=== PATIENT | male | born 1975 | race Two or more races ===

== ENCOUNTER 2020-09-12 12:01 | Inpatient (IN) | payer OTHER ==
[~2020-09-12] VITALS: Ht 190.5 cm; Wt 120.6 kg
[2020-09-12] MEDS ORDERED: KETOROLAC TROMETH 30 MG/ML 1ML VIAL IV ONE (12:15)
[2020-09-12] MEDS ORDERED: SODIUM CHLORIDE 0.9% 500 ML IV ONE (12:15)
[2020-09-12] MEDS ORDERED: CLINDAMYCIN 600MG IV 50 ML IV ONE (13:00)
[2020-09-12 13:20] LABS: Basophils # (auto) 0 10 ^3/uL (0-0.2); Basophils % (auto) 0.5 % (0.0-2.0); Eosinophils # (auto) 0.1 10 ^3/uL (0-0.8); Eosinophils % (auto) 1.1 % (0.0-7.0); Hematocrit 40.3 % (41.0-53.0); Hemoglobin 13.3 g/dL (13.5-17.5); Lymphocytes % (auto) 23.8 % (10.0-50.0); Mean Corpuscular Hemoglobin 29.6 pg (28.0-32.0); Mean Corpuscular Hgb Conc. 33.1 g/dL (32.0-36.0); Mean Corpuscular Volume 89.4 fL (80.0-100.0); Monocytes # (auto) 0.4 10 ^3/uL (0-1.3); Monocytes % (auto) 5.3 % (0.0-12.0); Neutrophils # (auto) 5.7 10 ^3/uL (1.6-8.6); Neutrophils % (auto) 69.3 % (37.0-80.0); Red Cell Distribution Width 14.3 % (11.8-14.3); White Blood Cell 8.2 10^3/uL (4.4-10.8)
[2020-09-12 13:35] LABS: Calcium 9.2 mg/dL (8.5-10.1); Potassium 4.2 mmol/L (3.5-5.1)
[2020-09-12 13:41] LABS: Albumin 4.1 g/dL (3.4-5.0); BUN/Creatinine Ratio 16.5; Bilirubin, Total 0.6 mg/dL (0.2-1.0); Total Protein 8.2 g/dL (6.4-8.2)
[2020-09-12] MEDS ORDERED: DEXTROSE (50%) 50ML SYRG IV PRN (14:15)
[2020-09-12] MEDS ORDERED: NITROGLYCERIN 0.4 MG SL TAB SL PRN (14:15)
[2020-09-12] MEDS ORDERED: MORPHINE SULFATE INJECTION 2 MG/ML SYRG IV PRN (14:15)
[2020-09-12] MEDS ORDERED: ONDANSETRON HCL 4 MG/2 ML VIAL IV PRN (14:15)
[2020-09-12] MEDS ORDERED: VANCOMYCIN PER PHARMACY 0 MG IV SCH (15:30)
[2020-09-12] MEDS: VANCOMYCIN 1GM/250ML 250 ML IV SCH ×2 (16:17→23:52)
[2020-09-12] MEDS: InsuLIN REG 1unit/0.01ml Soln (100units/ml) SC SCH ×2 (17:00→21:13)
[2020-09-12 17:30] VITALS: BP 145/89
[2020-09-12 17:40] LABS: Urine Bacteria FEW /hpf (None Seen); Urine Blood Negative /uL (Negative); Urine Hyaline Cast FEW /lpf (0 - 2); Urine Mucus FEW (None Seen); Urine Specific Gravity 1.026 (1.001-1.035); Urine WBC 3 /hpf (0 - 3)
[2020-09-12] MEDS: ACCU-CHEK COMFORT CURVE STRIP VI SCH ×2 (18:04→21:10)
[2020-09-12] MEDS: HYDROcodone-ACET 10/325MG TAB PO PRN ×2 (18:45→23:59)
[2020-09-12 22:00] VITALS: BP 152/96
[2020-09-13] VITALS (8 sets, daily range): BP systolic 130–161; BP diastolic 82–98
[2020-09-13] MEDS: ACCU-CHEK COMFORT CURVE STRIP VI SCH ×4 (06:00→21:08)
[2020-09-13] MEDS: InsuLIN REG 1unit/0.01ml Soln (100units/ml) SC SCH ×4 (06:01→21:09)
[2020-09-13 06:48] LABS: Basophils # (auto) 0 10 ^3/uL (0-0.2); Basophils % (auto) 0.6 % (0.0-2.0); Eosinophils # (auto) 0.2 10 ^3/uL (0-0.8); Eosinophils % (auto) 2.6 % (0.0-7.0); Hematocrit 36.1 % (41.0-53.0); Hemoglobin 12.2 g/dL (13.5-17.5); Lymphocytes # (auto) 2.6 10 ^3/uL (0.4-5.4); Lymphocytes % (auto) 38.5 % (10.0-50.0); Mean Corpuscular Hemoglobin 30.2 pg (28.0-32.0); Mean Corpuscular Hgb Conc. 33.8 g/dL (32.0-36.0); Mean Corpuscular Volume 89.1 fL (80.0-100.0); Monocytes # (auto) 0.5 10 ^3/uL (0-1.3); Monocytes % (auto) 7.6 % (0.0-12.0); Neutrophils # (auto) 3.4 10 ^3/uL (1.6-8.6); Neutrophils % (auto) 50.7 % (37.0-80.0); Nucleated Red Blood Cells % 0.1 %; Red Blood Cells 4.05 10^6/uL (4.5-5.90); Red Cell Distribution Width 13.8 % (11.8-14.3); White Blood Cell 6.7 10^3/uL (4.4-10.8)
[2020-09-13 07:06] LABS: Calcium 8.5 mg/dL (8.5-10.1); Potassium 4.1 mmol/L (3.5-5.1)
[2020-09-13 07:08] LABS: BUN/Creatinine Ratio 22.9
[2020-09-13] MEDS: HYDROcodone-ACET 10/325MG TAB PO PRN ×2 (07:46→14:40)
[2020-09-13] MEDS: VANCOMYCIN 1GM/250ML 250 ML IV SCH ×3 (07:46→23:35)
[2020-09-13] MEDS ORDERED: AMIT25TA12 PO ×2 (08:07→12:26)
[2020-09-13] MEDS ORDERED: GABA300C10 PO ×2 (08:08→12:26)
[2020-09-13] MEDS ORDERED: METF-370 PO ×2 (08:09→12:26)
[2020-09-13] MEDS ORDERED: PRAV20TA3 PO ×2 (08:13→12:26)
[2020-09-13] MEDS ORDERED: ENOXAPARIN SOD 40 MG/0.4 ML SYRINGE SC SCH (10:00)
[2020-09-13] MEDS ORDERED: APIXABAN 5 MG TAB PO SCH (10:51)
[2020-09-13] MEDS ORDERED: APIXABAN 5 MG TAB PO ONE (13:00)
[2020-09-13] MEDS: APIXABAN 5 MG TAB PO SCH (21:08)
[2020-09-14 05:00] VITALS: BP 157/103
[2020-09-14] MEDS: ACCU-CHEK COMFORT CURVE STRIP VI SCH ×4 (06:02→21:21)
[2020-09-14] MEDS: HYDROcodone-ACET 10/325MG TAB PO PRN ×3 (06:03→21:32)
[2020-09-14] MEDS: InsuLIN REG 1unit/0.01ml Soln (100units/ml) SC SCH ×4 (06:04→21:22)
[2020-09-14] MEDS ORDERED: AMLO-489 PO ×2 (06:16→10:00)
[2020-09-14] MEDS: VANCOMYCIN 1GM/250ML 250 ML IV SCH ×3 (08:17→23:56)
[2020-09-14 09:00] VITALS: BP 143/102
[2020-09-14] MEDS: APIXABAN 5 MG TAB PO SCH ×2 (09:25→21:21)
[2020-09-14 13:00] VITALS: BP 155/89
[2020-09-14 17:00] VITALS: BP 154/85
[2020-09-14] MEDS ORDERED: amLODIPine BESYLATE 5 MG TAB PO ONE (20:30)
[2020-09-14] MEDS ORDERED: cloNIDine HCL 0.1 MG TAB PO PRN (20:30)
[2020-09-14] MEDS: PIPERACILLIN-TAZOB 3.375GM 100 ML IV SCH (21:20)
[2020-09-14 22:00] VITALS: BP 141/94
[2020-09-15] MEDS: PIPERACILLIN-TAZOB 3.375GM 100 ML IV SCH ×3 (04:53→21:54)
[2020-09-15 05:00] VITALS: BP 158/90
[2020-09-15] MEDS: ACCU-CHEK COMFORT CURVE STRIP VI SCH ×4 (06:02→21:53)
[2020-09-15] MEDS: InsuLIN REG 1unit/0.01ml Soln (100units/ml) SC SCH ×4 (06:03→22:06)
[2020-09-15] MEDS: VANCOMYCIN 1GM/250ML 250 ML IV SCH ×3 (08:02→23:54)
[2020-09-15 09:00] VITALS: BP 159/85
[2020-09-15] MEDS: APIXABAN 5 MG TAB PO SCH ×2 (09:30→21:53)
[2020-09-15 13:00] VITALS: BP 141/87
[2020-09-15] MEDS: HYDROcodone-ACET 10/325MG TAB PO PRN ×2 (15:26→21:53)
[2020-09-15 17:00] VITALS: BP 153/93
[2020-09-15] MEDS: amLODIPine BESYLATE 5 MG TAB PO SCH (17:37)
[2020-09-15] MEDS: LOSARTAN POTASSIUM 50 MG TAB PO SCH (17:38)
[2020-09-15 22:00] VITALS: BP 139/93
[2020-09-16 05:00] VITALS: BP 148/81
[2020-09-16] MEDS: PIPERACILLIN-TAZOB 3.375GM 100 ML IV SCH ×3 (06:13→21:52)
[2020-09-16] MEDS: LOSARTAN POTASSIUM 50 MG TAB PO SCH ×2 (06:14→17:05)
[2020-09-16] MEDS: ACCU-CHEK COMFORT CURVE STRIP VI SCH ×4 (06:16→21:53)
[2020-09-16] MEDS: InsuLIN REG 1unit/0.01ml Soln (100units/ml) SC SCH ×4 (06:21→22:00)
[2020-09-16] MEDS: VANCOMYCIN 1GM/250ML 250 ML IV SCH ×3 (08:07→23:41)
[2020-09-16 08:47] VITALS: BP 128/92
[2020-09-16] MEDS: APIXABAN 5 MG TAB PO SCH ×2 (09:02→21:52)
[2020-09-16 13:00] VITALS: BP 111/65
[2020-09-16] MEDS: HYDROcodone-ACET 10/325MG TAB PO PRN ×2 (13:37→19:38)
[2020-09-16 16:42] VITALS: BP 111/68
[2020-09-16] MEDS: amLODIPine BESYLATE 5 MG TAB PO SCH (17:05)
[2020-09-16 22:00] VITALS: BP 138/84
[2020-09-17 05:00] VITALS: BP 164/84
[2020-09-17] MEDS: PIPERACILLIN-TAZOB 3.375GM 100 ML IV SCH ×3 (05:52→21:00)
[2020-09-17] MEDS: ACCU-CHEK COMFORT CURVE STRIP VI SCH ×4 (05:53→22:07)
[2020-09-17] MEDS: LOSARTAN POTASSIUM 50 MG TAB PO SCH ×2 (05:53→17:58)
[2020-09-17] MEDS: InsuLIN REG 1unit/0.01ml Soln (100units/ml) SC SCH ×4 (06:54→22:13)
[2020-09-17] MEDS: VANCOMYCIN 1GM/250ML 250 ML IV SCH ×2 (08:06→19:50)
[2020-09-17 08:41] VITALS: BP 153/95
[2020-09-17] MEDS: APIXABAN 5 MG TAB PO SCH ×2 (09:29→21:00)
[2020-09-17] MEDS: HYDROcodone-ACET 10/325MG TAB PO PRN ×2 (11:57→20:00)
[2020-09-17 13:00] VITALS: BP 145/85
[2020-09-17] MEDS: amLODIPine BESYLATE 5 MG TAB PO SCH (17:58)
[2020-09-17 22:36] VITALS: BP 116/70
[2020-09-18 05:14] VITALS: BP 137/94
[2020-09-18] MEDS: PIPERACILLIN-TAZOB 3.375GM 100 ML IV SCH ×3 (05:55→21:13)
[2020-09-18] MEDS: LOSARTAN POTASSIUM 50 MG TAB PO SCH ×2 (05:56→18:01)
[2020-09-18] MEDS: ACCU-CHEK COMFORT CURVE STRIP VI SCH ×4 (06:04→21:14)
[2020-09-18] MEDS: InsuLIN REG 1unit/0.01ml Soln (100units/ml) SC SCH ×4 (07:06→21:14)
[2020-09-18] MEDS: VANCOMYCIN 1GM/250ML 250 ML IV SCH ×2 (08:55→19:50)
[2020-09-18] MEDS: APIXABAN 5 MG TAB PO SCH ×2 (08:55→21:13)
[2020-09-18] MEDS: METOPROLOL SUCCINATE XL 50 MG TAB PO SCH (08:56)
[2020-09-18 09:01] VITALS: BP 146/92
[2020-09-18 12:53] VITALS: BP 124/81
[2020-09-18] MEDS: HYDROcodone-ACET 10/325MG TAB PO PRN ×2 (15:58→21:15)
[2020-09-18 16:45] VITALS: BP 124/78
[2020-09-18] MEDS: amLODIPine BESYLATE 5 MG TAB PO SCH (18:00)
[2020-09-18 22:00] VITALS: BP 142/86
[2020-09-19 04:38] VITALS: BP 120/78
[2020-09-19] MEDS: PIPERACILLIN-TAZOB 3.375GM 100 ML IV SCH ×3 (05:34→22:11)
[2020-09-19] MEDS: LOSARTAN POTASSIUM 50 MG TAB PO SCH ×2 (05:35→17:32)
[2020-09-19] MEDS: ACCU-CHEK COMFORT CURVE STRIP VI SCH ×4 (06:39→21:58)
[2020-09-19] MEDS: InsuLIN REG 1unit/0.01ml Soln (100units/ml) SC SCH ×4 (06:39→21:55)
[2020-09-19] MEDS: VANCOMYCIN 1GM/250ML 250 ML IV SCH ×2 (07:51→20:08)
[2020-09-19 08:34] VITALS: BP 137/87
[2020-09-19] MEDS: APIXABAN 5 MG TAB PO SCH ×2 (09:43→22:11)
[2020-09-19] MEDS: METOPROLOL SUCCINATE XL 50 MG TAB PO SCH (09:44)
[2020-09-19 12:49] VITALS: BP 109/61
[2020-09-19 16:47] VITALS: BP 133/83
[2020-09-19] MEDS: amLODIPine BESYLATE 5 MG TAB PO SCH (17:32)
[2020-09-19 22:00] VITALS: BP 134/93
[2020-09-19] MEDS: HYDROcodone-ACET 10/325MG TAB PO PRN (22:11)
[2020-09-20 05:11] VITALS: BP 140/82
[2020-09-20] MEDS: InsuLIN REG 1unit/0.01ml Soln (100units/ml) SC SCH ×4 (06:50→22:50)
[2020-09-20] MEDS: ACCU-CHEK COMFORT CURVE STRIP VI SCH ×4 (06:53→22:00)
[2020-09-20] MEDS: PIPERACILLIN-TAZOB 3.375GM 100 ML IV SCH ×3 (07:04→22:59)
[2020-09-20] MEDS: LOSARTAN POTASSIUM 50 MG TAB PO SCH ×2 (07:05→18:43)
[2020-09-20] MEDS: VANCOMYCIN 1GM/250ML 250 ML IV SCH ×2 (08:04→20:28)
[2020-09-20 08:56] VITALS: BP 142/80
[2020-09-20] MEDS: APIXABAN 5 MG TAB PO SCH ×2 (09:46→22:59)
[2020-09-20] MEDS: METOPROLOL SUCCINATE XL 50 MG TAB PO SCH (09:46)
[2020-09-20 13:00] VITALS: BP 108/69
[2020-09-20 17:00] VITALS: BP 140/78
[2020-09-20] MEDS: amLODIPine BESYLATE 5 MG TAB PO SCH (18:44)
[2020-09-20 22:00] VITALS: BP 150/86
[2020-09-20] MEDS: HYDROcodone-ACET 10/325MG TAB PO PRN (23:01)
[2020-09-21 05:19] VITALS: BP 115/75
[2020-09-21] MEDS: InsuLIN REG 1unit/0.01ml Soln (100units/ml) SC SCH ×4 (06:29→22:34)
[2020-09-21] MEDS: ACCU-CHEK COMFORT CURVE STRIP VI SCH ×4 (06:31→21:57)
[2020-09-21] MEDS: LOSARTAN POTASSIUM 50 MG TAB PO SCH ×2 (06:32→17:35)
[2020-09-21] MEDS: PIPERACILLIN-TAZOB 3.375GM 100 ML IV SCH ×3 (06:32→21:56)
[2020-09-21 09:00] VITALS: BP 139/86
[2020-09-21] MEDS: VANCOMYCIN 1GM/250ML 250 ML IV SCH ×2 (09:57→20:42)
[2020-09-21] MEDS: METOPROLOL SUCCINATE XL 50 MG TAB PO SCH (09:58)
[2020-09-21] MEDS: APIXABAN 5 MG TAB PO SCH ×2 (09:58→21:57)
[2020-09-21 13:00] VITALS: BP 127/73
[2020-09-21 17:00] VITALS: BP 140/74
[2020-09-21] MEDS: amLODIPine BESYLATE 5 MG TAB PO SCH (17:35)
[2020-09-21 21:57] VITALS: BP 112/49
[2020-09-22 05:11] VITALS: BP 126/81
[2020-09-22] MEDS: LOSARTAN POTASSIUM 50 MG TAB PO SCH ×2 (05:52→17:53)
[2020-09-22] MEDS: PIPERACILLIN-TAZOB 3.375GM 100 ML IV SCH ×3 (05:52→22:39)
[2020-09-22 05:55] LABS: Basophils # (auto) 0.1 10 ^3/uL (0-0.2); Basophils % (auto) 0.7 % (0.0-2.0); Eosinophils # (auto) 0.3 10 ^3/uL (0-0.8); Eosinophils % (auto) 3.9 % (0.0-7.0); Hematocrit 39.8 % (41.0-53.0); Hemoglobin 13.4 g/dL (13.5-17.5); Lymphocytes # (auto) 1.6 10 ^3/uL (0.4-5.4); Lymphocytes % (auto) 18.9 % (10.0-50.0); Mean Corpuscular Hgb Conc. 33.6 g/dL (32.0-36.0); Mean Corpuscular Volume 89.2 fL (80.0-100.0); Monocytes # (auto) 0.7 10 ^3/uL (0-1.3); Monocytes % (auto) 8.8 % (0.0-12.0); Neutrophils # (auto) 5.7 10 ^3/uL (1.6-8.6); Neutrophils % (auto) 67.7 % (37.0-80.0); Red Blood Cells 4.45 10^6/uL (4.5-5.90); Red Cell Distribution Width 14.1 % (11.8-14.3); White Blood Cell 8.4 10^3/uL (4.4-10.8)
[2020-09-22 06:04] LABS: BUN/Creatinine Ratio 17.5; Calcium 9.1 mg/dL (8.5-10.1); Potassium 4.3 mmol/L (3.5-5.1)
[2020-09-22] MEDS: ACCU-CHEK COMFORT CURVE STRIP VI SCH ×4 (06:32→22:40)
[2020-09-22] MEDS: InsuLIN REG 1unit/0.01ml Soln (100units/ml) SC SCH ×4 (06:58→23:12)
[2020-09-22 09:00] VITALS: BP 141/91
[2020-09-22] MEDS: VANCOMYCIN 1GM/250ML 250 ML IV SCH ×2 (09:20→21:00)
[2020-09-22] MEDS: HYDROcodone-ACET 10/325MG TAB PO PRN (09:26)
[2020-09-22] MEDS: METOPROLOL SUCCINATE XL 50 MG TAB PO SCH (09:31)
[2020-09-22] MEDS: APIXABAN 5 MG TAB PO SCH ×2 (09:31→22:39)
[2020-09-22 13:00] VITALS: BP 124/61
[2020-09-22 16:51] VITALS: BP 138/83
[2020-09-22] MEDS: amLODIPine BESYLATE 5 MG TAB PO SCH (17:54)
[2020-09-22 22:00] VITALS: BP 127/71
[2020-09-23 05:00] VITALS: BP 127/62
[2020-09-23] MEDS: PIPERACILLIN-TAZOB 3.375GM 100 ML IV SCH ×3 (06:04→22:00)
[2020-09-23] MEDS: LOSARTAN POTASSIUM 50 MG TAB PO SCH ×2 (06:05→18:13)
[2020-09-23] MEDS: ACCU-CHEK COMFORT CURVE STRIP VI SCH ×4 (06:24→22:00)
[2020-09-23] MEDS: InsuLIN REG 1unit/0.01ml Soln (100units/ml) SC SCH ×4 (06:47→22:00)
[2020-09-23 08:30] VITALS: BP 134/76
[2020-09-23] MEDS: APIXABAN 5 MG TAB PO SCH ×2 (08:53→22:00)
[2020-09-23] MEDS: VANCOMYCIN 1GM/250ML 250 ML IV SCH ×2 (09:00→21:00)
[2020-09-23] MEDS: METOPROLOL SUCCINATE XL 50 MG TAB PO SCH (09:34)
[2020-09-23 12:30] VITALS: BP 135/75
[2020-09-23 16:32] VITALS: BP 137/80
[2020-09-23] MEDS: amLODIPine BESYLATE 5 MG TAB PO SCH (18:13)
[2020-09-23 20:00] VITALS: BP 125/73
[2020-09-23 22:00] VITALS: BP 125/73
[2020-09-24 05:00] VITALS: BP 127/93
[2020-09-24] MEDS: PIPERACILLIN-TAZOB 3.375GM 100 ML IV SCH (06:17)
[2020-09-24] MEDS: LOSARTAN POTASSIUM 50 MG TAB PO SCH (06:18)
[2020-09-24] MEDS: InsuLIN REG 1unit/0.01ml Soln (100units/ml) SC SCH (06:41)
[2020-09-24] MEDS: ACCU-CHEK COMFORT CURVE STRIP VI SCH (06:41)
[2020-09-24 08:42] VITALS: BP 126/80
[2020-09-24] MEDS: APIXABAN 5 MG TAB PO SCH (08:54)
[2020-09-24] MEDS: VANCOMYCIN 1GM/250ML 250 ML IV SCH (08:54)
[2020-09-24] MEDS: METOPROLOL SUCCINATE XL 50 MG TAB PO SCH (08:55)
[2020-09-24] MEDS ORDERED: LEVO500T31 PO (11:08)
[2020-09-24] MEDS ORDERED: APIX5TAB PO (11:14)
[2020-09-24 11:22] VITALS: BP 126/80
== END 2020-09-24 11:45 | DRG 300 ==
LOC: ER 12:01 → EEVIPCON 12:01 → OVERFLOW 14:11 → EAST 17:48
PROVIDERS: ADMIT Internal Medicine; ATTEND Internal Medicine
DX: I82.442 Acute embolism and thrombosis of left tibial vein (principal); L03.116 Cellulitis of left lower limb; I82.542 Chronic embolism and thrombosis of left tibial vein; E11.9 Type 2 diabetes mellitus without complications; I10 Essential (primary) hypertension; E66.9 Obesity, unspecified; Z20.822 Contact with and (suspected) exposure to COVID-19; Z83.3 Family history of diabetes mellitus; Z68.33 Body mass index [BMI] 33.0-33.9, adult; E86.0 Dehydration
CPT/HCPCS: 36415; 73700; 78315; 80048; 80053; 80202; 81001; 82565; 82962; 85025; 85652; 87077; 87081; 87186; 87205; 87426; 93971; 96365; 96375; G0378; J1815; J1885; J2543; J3490

== ENCOUNTER → 2020-11-20 | Outpatient (CLI) | payer OTHER ==
[~2020-11-20] MED LIST: AMIT25TA9 PO; AMLO-489 PO; APIX5TAB PO; GABA300C10 PO; LEVO500T31 PO; METF-370 PO; PRAV20TA3 PO
== END | disposition home or self-care (01) ==
LOC: EDUNIT# 09:00 → CT 09:44
PROVIDERS: ATTEND Internal Medicine
DX: M79.89 Other specified soft tissue disorders (principal); I83.92 Asymptomatic varicose veins of left lower extremity; R23.4 Changes in skin texture; R60.0 Localized edema
CPT/HCPCS: 73700

== ENCOUNTER 2022-04-15 18:08 | Inpatient (IN) | payer OTHER ==
[~2022-04-15] VITALS: Ht 190.5 cm; Wt 124.3 kg
[~2022-04-15 18:08] MED LIST changes: +AMIT25TA12 PO; -AMIT25TA9 PO
[2022-04-15 22:12] LABS: Basophils # (auto) 0.1 10 ^3/uL (0-0.2); Basophils % (auto) 1.2 % (0.0-2.0); Eosinophils # (auto) 0.2 10 ^3/uL (0-0.8); Eosinophils % (auto) 2.6 % (0.0-7.0); Hematocrit 41.8 % (41.0-53.0); Hemoglobin 14.1 g/dL (13.5-17.5); Lymphocytes # (auto) 2.4 10 ^3/uL (0.4-5.4); Lymphocytes % (auto) 40.6 % (10.0-50.0); Mean Corpuscular Hemoglobin 29.5 pg (28.0-32.0); Mean Corpuscular Hgb Conc. 33.6 g/dL (32.0-36.0); Mean Corpuscular Volume 87.9 fL (80.0-100.0); Monocytes # (auto) 0.3 10 ^3/uL (0-1.3); Monocytes % (auto) 5.6 % (0.0-12.0); Nucleated Red Blood Cells % 0.1 %; Red Blood Cells 4.76 10^6/uL (4.5-5.90)
[2022-04-15 22:34] LABS: BUN/Creatinine Ratio 23.1; Bilirubin, Total 0.4 mg/dL (0.2-1.0); CRP High Sensitivity 0.63 mg/dL (< 0.3); Calcium 9.6 mg/dL (8.5-10.1); Potassium 4.3 mmol/L (3.5-5.1); Total Protein 8.2 g/dL (6.4-8.2)
[2022-04-16] MEDS ORDERED: HYDROcodone-ACET 5/325MG TAB PO ONE (00:30)
[2022-04-16] MEDS ORDERED: cloNIDine HCL 0.1 MG TAB PO PRN (02:15)
[2022-04-16 03:32] LABS: Urine Blood Normal /uL (Negative)
[2022-04-16 06:04] VITALS: BP 150/89
[2022-04-16 09:00] VITALS: BP 140/81
[2022-04-16] MEDS: VANCOMYCIN 1GM/250ML 250 ML IV SCH ×2 (10:13→21:19)
[2022-04-16] MEDS: APIXABAN 5 MG TAB PO SCH ×2 (10:13→21:20)
[2022-04-16] MEDS: amLODIPine BESYLATE 5 MG TAB PO SCH (10:14)
[2022-04-16] MEDS: GABAPENTIN 300 MG CAP PO SCH ×2 (10:14→21:20)
[2022-04-16 14:38] LABS: Hepatitis C Antibody Negative (Negative)
[2022-04-16 16:45] VITALS: BP 147/94
[2022-04-16] MEDS ORDERED: VANCOMYCIN PER PHARMACY 0 MG IV SCH (17:00)
[2022-04-16] MEDS: MUPIROCIN 2% OINT 15gm or 22gm FOR MRSA NARES EACHNOSTRI SCH (21:19)
[2022-04-16 22:00] VITALS: BP 133/93
[2022-04-17 05:00] VITALS: BP 157/96
[2022-04-17] MEDS: glipiZIDE 5 MG TAB PO SCH (06:18)
[2022-04-17 09:00] VITALS: BP 138/91
[2022-04-17] MEDS: VANCOMYCIN 1GM/250ML 250 ML IV SCH ×2 (10:21→23:06)
[2022-04-17] MEDS: APIXABAN 5 MG TAB PO SCH ×2 (10:21→23:06)
[2022-04-17] MEDS: GABAPENTIN 300 MG CAP PO SCH ×2 (10:21→23:06)
[2022-04-17] MEDS: amLODIPine BESYLATE 5 MG TAB PO SCH (10:22)
[2022-04-17] MEDS: MUPIROCIN 2% OINT 15gm or 22gm FOR MRSA NARES EACHNOSTRI SCH ×2 (10:25→23:07)
[2022-04-17 13:00] VITALS: BP 132/83
[2022-04-17] MEDS ORDERED: PIPERACILLIN-TAZOB 3.375GM 100 ML IV ONE ×2 (15:15)
[2022-04-17 17:00] VITALS: BP 125/85
[2022-04-17 22:00] VITALS: BP 120/85
[2022-04-18] MEDS: PIPERACILLIN-TAZOB 3.375GM 100 ML IV SCH ×4 (00:31→21:57)
[2022-04-18 05:00] VITALS: BP 129/83
[2022-04-18] MEDS: VANCOMYCIN 1GM/250ML 250 ML IV SCH ×3 (05:48→19:51)
[2022-04-18] MEDS: glipiZIDE 5 MG TAB PO SCH (06:49)
[2022-04-18 09:00] VITALS: BP 127/79
[2022-04-18] MEDS: GABAPENTIN 300 MG CAP PO SCH ×2 (10:44→21:57)
[2022-04-18] MEDS: APIXABAN 5 MG TAB PO SCH ×2 (10:44→21:57)
[2022-04-18] MEDS: MUPIROCIN 2% OINT 15gm or 22gm FOR MRSA NARES EACHNOSTRI SCH ×2 (10:44→21:57)
[2022-04-18] MEDS: amLODIPine BESYLATE 5 MG TAB PO SCH (10:45)
[2022-04-18 13:00] VITALS: BP 132/82
[2022-04-18 16:42] VITALS: BP 118/64
[2022-04-18 21:42] VITALS: BP 123/81
[2022-04-19] MEDS: VANCOMYCIN 1GM/250ML 250 ML IV SCH (03:05)
[2022-04-19 04:37] VITALS: BP 125/88
[2022-04-19] MEDS: PIPERACILLIN-TAZOB 3.375GM 100 ML IV SCH ×2 (05:59→21:45)
[2022-04-19] MEDS: glipiZIDE 5 MG TAB PO SCH (06:16)
[2022-04-19 07:17] LABS: Albumin 3.6 g/dL (3.4-5.0); BUN/Creatinine Ratio 16.8; Calcium 9.2 mg/dL (8.5-10.1); Phosphorus 3.3 mg/dL (2.5-4.90); Potassium 4.7 mmol/L (3.5-5.1)
[2022-04-19 08:52] VITALS: BP 141/80
[2022-04-19] MEDS: MUPIROCIN 2% OINT 15gm or 22gm FOR MRSA NARES EACHNOSTRI SCH ×2 (10:00→21:46)
[2022-04-19] MEDS: GABAPENTIN 300 MG CAP PO SCH ×2 (11:08→21:46)
[2022-04-19] MEDS: APIXABAN 5 MG TAB PO SCH ×2 (11:08→21:46)
[2022-04-19] MEDS: amLODIPine BESYLATE 5 MG TAB PO SCH (11:09)
[2022-04-19 13:00] VITALS: BP 133/73
[2022-04-19 16:44] VITALS: BP 135/84
[2022-04-19] MEDS: CIPROFLOXACIN HCL 500 MG TAB PO SCH (21:46)
[2022-04-19 22:00] VITALS: BP 121/62
[2022-04-20 05:00] VITALS: BP 156/92
[2022-04-20] MEDS: PIPERACILLIN-TAZOB 3.375GM 100 ML IV SCH ×3 (05:38→22:42)
[2022-04-20] MEDS: glipiZIDE 5 MG TAB PO SCH (06:28)
[2022-04-20 09:00] VITALS: BP 129/82
[2022-04-20] MEDS: APIXABAN 5 MG TAB PO SCH ×2 (10:00→22:42)
[2022-04-20] MEDS: GABAPENTIN 300 MG CAP PO SCH ×2 (10:00→22:42)
[2022-04-20] MEDS: amLODIPine BESYLATE 5 MG TAB PO SCH (10:00)
[2022-04-20] MEDS: CIPROFLOXACIN HCL 500 MG TAB PO SCH ×2 (10:00→22:42)
[2022-04-20] MEDS: MUPIROCIN 2% OINT 15gm or 22gm FOR MRSA NARES EACHNOSTRI SCH ×2 (10:00→22:42)
[2022-04-20 13:00] VITALS: BP 126/73
[2022-04-20 17:00] VITALS: BP 123/81
[2022-04-20 22:00] VITALS: BP 110/65
[2022-04-21 05:00] VITALS: BP 115/77
[2022-04-21] MEDS: glipiZIDE 5 MG TAB PO SCH (06:48)
[2022-04-21] MEDS: PIPERACILLIN-TAZOB 3.375GM 100 ML IV SCH ×3 (06:48→23:47)
[2022-04-21 09:00] VITALS: BP 114/67
[2022-04-21] MEDS: GABAPENTIN 300 MG CAP PO SCH ×2 (09:18→23:01)
[2022-04-21] MEDS: APIXABAN 5 MG TAB PO SCH ×2 (09:19→23:01)
[2022-04-21] MEDS: CIPROFLOXACIN HCL 500 MG TAB PO SCH ×2 (09:19→23:01)
[2022-04-21] MEDS: MUPIROCIN 2% OINT 15gm or 22gm FOR MRSA NARES EACHNOSTRI SCH (09:20)
[2022-04-21] MEDS: amLODIPine BESYLATE 5 MG TAB PO SCH (09:22)
[2022-04-21 13:03] VITALS: BP 124/83
[2022-04-21 17:00] VITALS: BP 119/79
[2022-04-21 22:00] VITALS: BP 126/78
[2022-04-22 05:00] VITALS: BP 118/75
[2022-04-22] MEDS: PIPERACILLIN-TAZOB 3.375GM 100 ML IV SCH ×2 (06:15→12:54)
[2022-04-22] MEDS: glipiZIDE 5 MG TAB PO SCH (06:16)
[2022-04-22 09:00] VITALS: BP 131/55
[2022-04-22] MEDS: APIXABAN 5 MG TAB PO SCH (09:30)
[2022-04-22] MEDS: GABAPENTIN 300 MG CAP PO SCH (09:30)
[2022-04-22] MEDS: CIPROFLOXACIN HCL 500 MG TAB PO SCH (09:31)
[2022-04-22] MEDS: amLODIPine BESYLATE 5 MG TAB PO SCH (09:31)
[2022-04-22] MEDS ORDERED: CIPR500T4 PO (12:59)
[2022-04-22 13:00] VITALS: BP 130/78
[2022-04-22 14:11] VITALS: BP 131/55
== END 2022-04-22 15:11 | disposition home or self-care (01) | DRG 300 ==
LOC: ER 18:08 → EEVIPCON 18:08 → EDBD 18:08 → OVERFLOW 04-16 01:20 → WEST WING 04-16 05:34
PROVIDERS: ADMIT Internal Medicine; ATTEND Internal Medicine
DX: E11.51 Type 2 diabetes mellitus with diabetic peripheral angiopathy without gangrene (principal); L03.116 Cellulitis of left lower limb; L97.429 Non-pressure chronic ulcer of left heel and midfoot with unspecified severity; E78.00 Pure hypercholesterolemia, unspecified; E11.621 Type 2 diabetes mellitus with foot ulcer; I10 Essential (primary) hypertension; M20.40 Other hammer toe(s) (acquired), unspecified foot; Z20.822 Contact with and (suspected) exposure to COVID-19; Z79.84 Long term (current) use of oral hypoglycemic drugs
CPT/HCPCS: 36415; 73610; 73630; 73700; 78315; 80053; 80069; 80202; 81003; 82565; 82962; 85025; 85652; 86141; 86803; 87077; 87081; 87186; 87205; 87340; 87426; G0378; J2543